=== PATIENT | male | born 1955 | race Caucasian/White ===

== ENCOUNTER 2018-12-19 09:50 | Inpatient (IN) ==
[~2018-12-19 09:50] MED LIST: RINGER'S SOLUTION,LACTATED 1,000 ML IV PRN; ROPIVACAINE HCL/PF 100 MG, EPINEPHrine 0.2 MG, KETOROLAC TROMETHAMINE 30 MG in NORMAL S... IJ PRN; TRANEXAMIC ACID 1,000 MG in NORMAL SALINE 100 ML IV PRN; ceFAZolin SODIUM 1 GM VIAL IV PRN
--- NOTE | 2018-12-19 10:33 | ANES ---
Anesthesia Pre Procedure Eval Vitals/Labs: Last Vital Signs Temp 36.5 C 12/19/18 10:04 Pulse 78 12/19/18 10:04 Resp 16 12/19/18 10:04 BP 129/82 12/19/18 10:04 Pulse Ox 95 12/19/18 10:04 HOME MEDICATIONS clonazepam 2 mg tablet See Rx Instructions PO .COMPLEX #180 tab 12/19/17 [Last Taken 12/18/18] cholecalciferol (vitamin D3) 50,000 unit capsule 50,000 unit PO QWEEK #12 cap 03/21/18 [Last Taken 12/18/18] finasteride 5 mg tablet 5 mg PO DAILY #90 tab 03/21/18 [Last Taken 12/18/18] furosemide 20 mg tablet 20 mg PO BID #180 tab 03/21/18 [Last Taken 12/18/18] losartan 100 mg tablet 100 mg PO DAILY #90 tab 03/21/18 [Last Taken 12/18/18] C-PAP See Dose Instructions .ROUTE .MEDSUPPLY #1 ea 04/19/18 [Last Taken Unknown] ibuprofen 200 mg tablet 600 mg PO TID-QID PRN tab 06/16/18 [Last Taken 12/18/18] doxazosin 8 mg tablet 8 mg PO DAILY #90 tab 07/25/18 [Last Taken 12/19/18] phentermine 37.5 mg tablet 37.5 mg PO DAILY #30 tab 10/30/18 [Last Taken 12/18/18] Allergies/Adverse Reactions: Allergies Allergy/AdvReac Type Severity Reaction Status Date / Time Penicillins Allergy Mild Hives Verified 12/19/18 10:03 - Planned Procedure Planned Procedure: L total knee Medication List Reviewed:: Yes Allergies Verified: Yes Medical History (Updated 12/08/18 @ 14:18 by Jonathon Parra MD) Weight loss counseling, encounter for (Chronic) Left ankle injury (Acute) Onset Date: ~07/2018 Ankle pain, left (Acute) Onset Date: ~07/2018 Left patella fracture (Acute) Appetite increase (Acute) Obesity (Chronic) Tubular adenoma (Chronic) Vitamin D deficiency (Chronic) Onset Date: Unknown Insomnia (Chronic) Onset Date: Unknown BPH (benign prostatic hyperplasia) (Chronic) Onset Date: Unknown Hypertension (Chronic) Onset Date: Unknown HEMALATHA (obstructive sleep apnea) (Chronic) Onset Date: Unknown Kidney stone Erectile dysfunction Onset Date: Unknown Headache Onset Date: Unknown Sciatica Onset Date: Unknown Surgical History (Updated 11/27/18 @ 10:07 by Genoveva Rojas LPN) H/O colonoscopy 2013 dr yan tubular adenoma recheck 5-10 years H/O lithotripsy History of adenoidectomy Onset Date: Unknown History of appendectomy Onset Date: Unknown History of tonsillectomy Left Achilles tendon repair Onset Date: ~08/03/18 Dr Navarro S/P rotator cuff repair dr serna 2010- Right Family History (Updated 11/19/17 @ 13:53 by Freya Lafleur LPN) Father , age 63 Myocardial infarction Mother Diabetes Hypertension - Family Anesthesia History Family History:: no untoward family reactions to anesthesia - Airway/Neck/Teeth Teeth Condition: intact Neck Exam: limited range of motion Mallampatti Score: 3 Thyromental (T-M) distance: > 6 cm Mandibulo Hyoid distance: > 3 cm - Respiratory Respiratory Physical: lungs clear Smoking Status: Former smoker Sleep Apnea currently treated: Yes - Cardiovascular Cardiac History: hypertension Tolerate Activity: Fair Heart Sounds: S1 & S2, Regular - Anesthesia Assessment and Plan ASA Class: PS, II Anesthesia Type Plan: Spinal Planned difficult intubation/equipment available: No - adductor canal block for postop analgesia
[2018-12-19] MEDS: RINGER'S SOLUTION,LACTATED 1,000 ML IV PRN ×3 (10:41→13:30)
[2018-12-19] MEDS ORDERED: MAGNESIUM HYDROXIDE 30 ML UDC PO PRN (13:31)
[2018-12-19] MEDS ORDERED: ONDANSETRON HCL/PF 2 MG/ML VIAL IV PRN (13:31)
[2018-12-19] MEDS ORDERED: diphenhydrAMINE HCL 50 MG/ML VIAL IV PRN (13:31)
[2018-12-19] MEDS ORDERED: ZOLPIDEM TARTRATE 5 MG TABLET PO PRN (13:31)
[2018-12-19] MEDS ORDERED: ACETAMINOPHEN 500 MG TABLET PO PRN (13:31)
[2018-12-19] MEDS ORDERED: MAG HYDROX/ALUMINUM HYD/SIMETH 30 ML UDC PO PRN (13:31)
[2018-12-19] MEDS ORDERED: oxyCODONE HCL/ACETAMINOPHEN 1 TAB TABLET PO PRN (13:31)
--- NOTE | 2018-12-19 13:44 | OR ---
Operative Report - Dictated Report Narrative: Date: 12/19/2018 Preoperative diagnosis: Left knee degenerative joint disease. Postoperative diagnosis: Left knee degenerative joint disease. Procedure: Left total knee arthroplasty. Surgeon: Vignesh Navarro M.D. Hand Sewer: Bob Baez PA-C provided a set of essential, skilled, educated hands that assisted in positioning, transfer, retraction, manipulation, irrigation, closure of wounds, and placement of dressings all of which could not be provided by the available surgical crew. Anesthesia: Spinal with regional block and local periarticular joint injection. Complications: None Specimens: Bone for disposal. Estimated blood loss: Minimal. Tourniquet time: 78 minutes at 300 millimeters of mercury. Retained implants: Depuy Attune size 7 standard lugged cemented posterior stabilized femoral component. Size 7 rotating bearing cemented tibial platform. 7 by 7 millimeter posterior stabilized cross-linked tibial insert. 38 millimeter medialized patella button. Indications: Rizwan is a 63-year-old male who was followed in my clinic for period of time with significant complaints of left knee pain consistent with arthritic changes. They had failed conservative measures including but not limited to activity modification, passage of time, medications, and other conservative measures. Patient wished to proceed with surgical treatment. The risks, benefits, and alternatives were discussed in clinic. The risks of , blood clots, bleeding, infection, nerve/tendon blood vessel/ injury, malposition of components, intraoperative fracture, postoperative limited range of motion, persistent pain, failure of components, and need for additional procedures. Patient wished to proceed consent was obtained after answering all questions. Procedure: After marking the correct extremity on the floor, the patient was taken to the operating room. A timeout was performed. IV antibiotics consisting of 2 g of Ancef were administered prior to the procedure. A regional followed by spinal anesthetic was induced by anesthesia without complication. He was placed supine on the operative table with all bony prominences well- padded. Foy catheter was placed and a bump was placed under the operative side buttock. SCDs and PALMER hose were utilized on the nonoperative leg. A well- padded tourniquet was applied to the operative thigh. The operative leg was then pre-scrubbed with alcohol prepped and draped in a standard sterile fashion. After exsanguinating the extremity with an Esmarch bandage, the tourniquet was inflated. After marking out the anterior knee for standard incision centered over the patella, the skin was incised and dissected down to the joint retinaculum. The joint retinaculum was marked out as well as the horizontal axis of the patella, and a standard medial parapatellar arthrotomy was then made. The most proximal aspect of the quadriceps tendon and the patella tendon insertion were protected from release. A partial synovectomy was performed as well as a resection of the infrapatellar fat pad. The distal femoral fat pad proximal to the trochlea was also resected using cautery. The soft tissues were elevated off the medial aspect of the proximal tibia using a Vines elevator ensuring that we did not transect the medial collateral ligament. Upon initial evaluation range of motion was approximately 0 degrees to 115 degrees of flexion. There were signs of advanced arthrosis in the medial and patellofemoral joint spaces. There were large marginal osteophytes which were removed with a rongeur. The knee was hyperflexed and the patella was tucked laterally. Protecting the surrounding soft tissues with Homans, an entry drill was placed down the femoral canal using Whitesides line for guidance into the entry point. The intramedullary femoral alignment olga was utilized in order to cut the distal femur in 5 of valgus resecting 10 millimeters of bone. Next the distal femur was sized to a size 7. An anterior referencing guide was utilized to place the distal femoral cutting block in 3 of external rotation. This was pinned into place. The rotation was confirmed both visually and based on anatomic landmarks. The 4 in 1 cutting jig of the appropriate size was utilized in order to make all bony cuts. Retractors were utilized in order to protect surrounding soft tissues. This cut did not result in any excessive notching. We then cut the box centered over the distal femur. This allowed for resection of the anterior and posterior cruciate ligaments. I then turned my attention to the preparation of the tibia. Using an extra medullary tibial alignment olga, 4 millimeters of bone was resected off the medial articular surface. This was made perpendicular to the mechanical axis of the joint with the alignment olga centered over the ankle mortise. The alignment olga was parallel to the mechanical axis, centered over the medial one third of the tibial tubercle, paralleling the anterior surface of the tibia. We then turned our attention to the remaining meniscus and soft tissues. These were removed while protecting the surrounding ligaments and soft tissues. The marginal osteophytes off the anterior, posterior, medial, lateral aspects of the femur and tibia were removed. The tibia was sized out to a size 7. Next the tibia was drilled and punched in an externally rotated position as confirmed with a drop olga. Next the trial femur and a series of tibial inserts were utilized in order to allow for full extension and maximal flexion. It was found that a 7 millimeter insert gave the best range of motion and stability at multiple flexion points as well as at full extension there was less than 2 mm of gapping both medially and laterally. There is minimal anterior translation with the knee at 90 of flexion and no signs of being able to dislocate the knee. The patella was then prepared. The initial thickness was 25 millimeters. This was reamed down to 16 millimeters parallel to the anterior surface of the patella. It was sized out to a size 38 mm medialized patella button. This was then drilled and trialed. Without any medial restraint the patella tracked appropriately and did not sublux or dislocate. At this point, it was felt these were the appropriate sized implants and all trials were removed. The standard periarticular joint injection consisting of ropivacaine, Toradol, and epinephrine were injected into the periarticular joint tissues. The bony surfaces were thoroughly irrigated with a pulsatile-suction saline irrigation device. A bone plug from the prior resected anterior chamfer cut was placed into the drill hole at the distal femur. The bony surfaces were then dried in preparation for placement of the implants. The cement was vacuum mixed per the salesperson jewelry's instructions. The cement was placed on the dry bony surfaces and posterior aspect of the implants. The implants were impacted into place, removing all extruded cement. At this point anesthesia administered tranexamic acid per protocol intravenously. The knee was placed in extension with axial loading with the trial insert while the cement cured. A dilute 0.35% betadyne-saline solution was used to irrigate the knee and allowed to sit in the knee while the cement cured. Once the cement cured, all remaining extruded cement was removed. The knee was placed through a range of motion with the trial insert to ensure appropriate range of motion and stability. Final range of motion was approximately 0 to 130 degrees. The knee was again thoroughly irrigated with pulsatile saline lavage. The final polyethylene insert was then impacted into place ensuring no retained soft tissues. The remaining periarticular joint injection was injected. The knee was then packed with lap sponges which were soaked with dilute betadyne solution and the tourniquet was let down. Pressure was held for approximately 2 minutes and then hemostasis was obtained using electrocautery to coagulate any bleeding vessels. The knee was then placed over a triangle and the arthrotomy was closed with interrupted #1 Vicryl after thoroughly irrigating the joint. The deep and subcutaneous tissues were closed with interrupted oh and 3-0 Vicryl respectively. Skin was closed with a running subcutaneous 3-0 Monocryl and Prineo dressing. 4 x 4's, ABD, Sof-Rol, and a full leg Jacobo wrap were applied. All sponge, needle, blade, and instrument counts were correct prior to closing the wounds. Postoperative condition: The patient was awoken and transferred to the postanesthesia care unit in stable condition. Plan is to be admitted to the inpatient medical/surgical floor postoperatively for 24 hours of IV antibiotics, physical therapy, occupational therapy, and medical co-management. Patient will be weightbearing as tolerated with range of motion as tolerated. DVT prophylaxis will be with SCDs, PALMER hose, and pharmacological anticoagulation. Anticipated hospital stay is approximately 2-4 days.
--- NOTE | 2018-12-19 14:09 | ANES ---
Post Anesthesia Discharge - Transfer of Care Transfer of Care handoff given to nurse: Yes - Discharge from PACU Discharge from PACU when meets criteria: Yes
--- NOTE | 2018-12-19 14:13 | ANES ---
Anesthesia Procedure Note Procedure Note: ANESTHESIA PROCEDURE NOTE Date of procedure: 12/19/2018. Time of procedure: 1100. Performed by: Antoni Husain CRNA Student Specialist: Rosana Elliott RN . Preprocedure diagnosis: Left knee DJD. Post procedure diagnosis: Same. Procedure: Ultrasound-guided left adductor canal block Indications: Postoperative analgesia. Findings: Patient brought to operating room #2 and given a spinal anesthetic. The patient's left inner thigh was prepped with ChloraPrep. Ultrasound was utilized to identify the saphenous nerve in the left adductor canal. A 20-gauge 4 inch regional block needle was advanced under ultrasound guidance till tip of needle was placed just anterior to saphenous nerve. 30 mL of 0.25% Marcaine with epinephrine 1-200,000 was injected with adequate spread of local anesthesia noted around the nerve. Regional block needle was removed intact. EBL: Minimal. Fluids: N/A. Specimen: N/A. Post procedure condition: The patient tolerated the procedure well. No complications were noted. Thank you for this consultation Antoni Husain CRNA
--- NOTE | 2018-12-19 14:15 | ANES ---
Post Anesthesia Assessment - Vital Signs Vitals: Last Vital Signs Temp 36.8 C 12/19/18 14:05 Pulse 80 12/19/18 14:05 Resp 20 12/19/18 14:05 BP 102/61 12/19/18 14:05 Pulse Ox 92 L 12/19/18 14:05 Airway Patency: Normal - Mental Status Level Of Consciousness: Awake - Pain Level Pain Score: 1 - N/V Assessment Nausea/Vomiting Presence: None Dehydration:: No
[2018-12-19] MEDS: NORMAL SALINE 1,000 ML IV PRN ×2 (15:00→22:46)
[2018-12-19] MEDS: oxyCODONE HCL/ACETAMINOPHEN 1 TAB TABLET PO PRN ×2 (16:17→20:39)
[2018-12-19] MEDS: MORPHINE SULFATE 2 MG/ML DISP.SYRIN IV PRN ×2 (16:58→19:48)
[2018-12-19] MEDS: ceFAZolin SODIUM 2 GM in DEXTROSE 5 % IN WATER 50 ML IV SCH ×2 (17:31)
[2018-12-19] MEDS ORDERED: ceFAZolin SODIUM 2 GM in DEXTROSE 5 % IN WATER 50 ML IV SCH ×2 (18:00)
[2018-12-19] MEDS: FUROSEMIDE 20 MG TABLET PO SCH (20:39)
[2018-12-19] MEDS ORDERED: SENNOSIDES/DOCUSATE SODIUM 1 TAB TABLET PO SCH (21:00)
[2018-12-20] MEDS: MORPHINE SULFATE 2 MG/ML DISP.SYRIN IV PRN (01:00)
[2018-12-20] MEDS: oxyCODONE HCL/ACETAMINOPHEN 1 TAB TABLET PO PRN ×5 (01:17→17:35)
[2018-12-20] MEDS: ceFAZolin SODIUM 2 GM in DEXTROSE 5 % IN WATER 50 ML IV SCH ×4 (01:17→10:35)
[2018-12-20 05:32] LABS: Hematocrit 37.1 % (42.0-52.0); Hemoglobin 11.9 gm/dL (13.5-18.0); Mean Cell Volume 100.8 fl (78-100); Mean Corpuscular Hemoglobin 32.3 pg (27-31); Mean Corpuscular Hgb Conc 32.1 g/dl (32-36); Mean Platelet Volume 9.5 fl (8-11.3); Platelet Count 175 K/mm3 (150-450); Red Blood Count 3.68 M/mm3 (4.7-6.0); Red Cell Distribution Width 15.1 % (11.5-14.0); White Blood Count 7.9 K/mm3 (4.0-10.5)
[2018-12-20 05:41] LABS: Anion Gap 11.1 mmol/L (6.8-13.8); Carbon Dioxide 25.6 mmol/L (24-32.6); Potassium 3.7 mmol/L (3.4-4.6)
[2018-12-20 05:51] LABS: BUN/Creatinine Ratio 15.7 (9.0-21.6); Calcium * 7.5 mg/dL (7.9-10.9); Estimated Creat Clear 81.6
[2018-12-20] MEDS: FUROSEMIDE 20 MG TABLET PO SCH (08:56)
[2018-12-20] MEDS ORDERED: FINASTERIDE 5 MG TABLET PO SCH (09:00)
[2018-12-20] MEDS ORDERED: LOSARTAN POTASSIUM 50 MG TABLET PO SCH (09:00)
[2018-12-20] MEDS ORDERED: DOXAZOSIN MESYLATE 2 MG TABLET PO SCH (09:00)
--- NOTE | 2018-12-20 10:51 | PN ---
Subjective - Date and Time Seen Date: 12/20/18 Time: 07:50 Subjective Narrative: Patient reports no acute events. Patient does not he has significantly more pain with weightbearing, better with rest, however his pain is well controlled at this time. Patient did have mild increase in pain overnight, this was controlled with IV pain medications. Patient notes no other significant concerns. He has ambulated from bed to chair, has been tolerating a p.o. diet. Patient does note he had a brief episode of lightheadedness, note this was after ambulating, he has had no other significant symptomatic episodes, notes no significant symptoms currently. He does note it resolved rapidly without significant intervention. Objective - Vitals Vitals: Last Vital Signs Temp 36.4 C 12/20/18 10:00 Pulse 68 12/20/18 10:00 Resp 18 12/20/18 10:00 BP 101/64 12/20/18 10:00 Pulse Ox 97 12/20/18 10:00 - Abnormal Lab Findings Abnormal Lab Findings: Abnormal Lab Results 12/20/18 12/20/18 Range/Units 05:15 05:15 RBC 3.68 L (4.7-6.0) M/mm3 Hgb 11.9 L (13.5-18.0) gm/dL Hct 37.1 L (42.0-52.0) % MCV 100.8 H (78-100) fl MCH 32.3 H (27-31) pg RDW 15.1 H (11.5-14.0) % Chloride 108 H (97-106) mmol/L Calcium 7.5 L (7.9-10.9) mg/dL - Exam Constitutional: Present: Alert, Cooperative, No distress Respiratory: Present: no respiratory distress Extremity: Present: other - LLE--> surgical bandages in place clean/dry/intact, sensation intact light touch, distal pulses 2+, diffuse tenderness about left knee, 5/5 plantar flexion dorsiflexion of the foot Eye contact: Present: cooperative Thoughts: Present: normal thought pattern Cauti Physician Documentation - Urinary Catheter Management Urethral (Foy) Date of Insertion: 12/19/18 Time of Insertion: 11:20 Assessment/Plan Plan Narrative: -63 y/o male POD #1 status post left total knee arthroplasty -Weightbearing as tolerated, assistive device PRN -PT/OT progress as tolerated -P.o. diet as tolerated -P.o. pain medication as needed -DVT prophylaxis: Lovenox, SCDs in bed, PALMER prince knee-high -Hemoglobin 11.9, continue to monitor -Maintain surgical dressings in place -Disposition: Plan to discharge home once all PT goals are met, p.o. diet as amanda erated, p.o. pain medication is given adequate pain relief, no other acute surgical complications indicated - Problems/Diagnosis (1) Status post total knee replacement, left Problem: Acute
[2018-12-20] MEDS ORDERED: ENOXAPARIN SODIUM 40 MG/0.4 ML SYRG SC SCH (12:32)
--- NOTE | 2018-12-20 16:14 | DS ---
(1) Status post total knee replacement, left Problem: Acute Date of Discharge:: 12/20/18 Description of Stay: Patient 63-year-old male postop day 1 status post left total knee arthroplasty. Patient has had a relatively uncomplicated stay. He notes no other acute systemic symptoms. He notes he still has significant pain that is well controlled with p.o. pain medication of his left knee. Discussed with patient continued use of p.o. pain medication for pain control. Exam today reveals no significant erythema, drainage, surgical bandages were removed, incision has no significant drainage. Left lower extremity exam continues to have sensation intact light touch, distal capillary refill brisk, 5/5 plantar flexion dorsiflexion of the ankle. Patient has been up and ambulate middle all goals with PT. He is tolerating p.o. diet. Patient will follow-up in orthopedic outpatient clinic at 2 weeks postoperative. Patient will begin outpatient physical therapy on 12/21/2018. Patient can continue weightbearing as tolerated. DVT prophylaxis includes Lovenox for 10 days postoperatively, followed by 325 mg aspirin daily for 6 weeks. Patient will call the orthopedic outpatient clinic with any acute questions or concerns. Patient will continue with p.o. pain medication as prescribed. Procedures Performed: see notes below List Procedures: Status post left total knee arthroplasty Results and Findings: Lab Pending Results 12/20/18 05:15: WBC 7.9, RBC 3.68 L, Hgb 11.9 L, Hct 37.1 L, MCV 100.8 H, MCH 32.3 H, MCHC 32.1, RDW 15.1 H, Plt Count 175, MPV 9.5 12/20/18 05:15: Sodium 141, Plasma Sodium 141, Potassium 3.7, Chloride 108 H, Carbon Dioxide 25.6, Anion Gap 11.1, BUN 13, Creatinine 0.83, Est GFR (Non-Af Amer) 99, BUN/Creatinine Ratio 15.7, Random Glucose 109, Calcium 7.5 L Discharge Location: Home Disposition: Home self-care Condition: Good Discharge Activity: Activity as tolerated, Weight bearing Discharge Diet: General/regular food Referrals: Vignesh Navarro MD [Staff Physician] - 01/03/19 8:45 am Problem Oriented Discharge Instructions to Patient/Family: Total Knee Replacement, Care After, [id number] Print Language (French or Turkish Available): French Additional Patient Instructions (free text): Follow up Physical Therapy at [facility] outpatient rehab department on Tuesday12/21/18 at 1:15pm. Follow up Orthopedic office with Dr. Navarro on TuesdayJanuary 03 at 8:45am. Prescriptions (Any new or edited meds): Enoxaparin Sodium [Lovenox] 40 mg SC Q24H #9 disp.syrin oxyCODONE HCL/ACETAMINOPHEN [Percocet 5 MG/325 MG] 1 - 2 tab PO Q4H PRN #90 tab PRN Reason: Severe Pain (Pain Scale 7-10) Complete Home Medications List: Complete Home Medication List: clonazepam 2 mg tablet See Rx Instructions PO .COMPLEX #180 tab 12/19/17 cholecalciferol (vitamin D3) 50,000 unit capsule 50,000 unit PO QWEEK #12 cap 03/21/18 finasteride 5 mg tablet 5 mg PO DAILY #90 tab 03/21/18 furosemide 20 mg tablet 20 mg PO BID #180 tab 03/21/18 losartan 100 mg tablet 100 mg PO DAILY #90 tab 03/21/18 C-PAP See Dose Instructions .ROUTE .MEDSUPPLY #1 ea 04/19/18 ibuprofen 200 mg tablet 600 mg PO TID-QID PRN tab 06/16/18 doxazosin 8 mg tablet 8 mg PO DAILY #90 tab 07/25/18 phentermine 37.5 mg tablet 37.5 mg PO DAILY #30 tab 10/30/18 Enoxaparin Sodium [Lovenox] 40 mg SC Q24H #9 disp.syrin 12/20/18 oxyCODONE HCL/ACETAMINOPHEN [Percocet 5 MG/325 MG] 1 - 2 tab PO Q4H PRN #90 tab 12/20/18 Amb Orders for Discharge: PT Evaluation and Treatment* Location: None Selected
[2018-12-20 16:56] VITALS: BP 130/74
== END 2018-12-20 17:46 | disposition home or self-care (01) | DRG 470 ==
LOC: MS 09:50 → EDSTATUS 11:15
PROVIDERS: ADMIT Orthopaedic Surgery; ATTEND Orthopaedic Surgery
DX: I10 Essential (primary) hypertension; E55.9 Vitamin D deficiency, unspecified; E66.9 Obesity, unspecified; Z68.39 Body mass index [BMI] 39.0-39.9, adult; M17.12 Unilateral primary osteoarthritis, left knee; G47.33 Obstructive sleep apnea (adult) (pediatric)
CPT/HCPCS: 36415; 73560; 80048; 85027; 97110; 97116; 97161; 97165